=== PATIENT | female | born 1945 | race Hispanic/Latino ===

== ENCOUNTER 2016-11-11 10:50 | Emergency (ER) | payer MEDICARE ==
--- NOTE | 2016-11-11 11:57 | Emergency Department Report ---
ED Fall HPI - General Chief Complaint: Head Injury Stated Complaint: FALL Time Seen by Provider: 11/11/16 11:45 Source: patient, EMS Mode of arrival: Stretcher Limitations: No Limitations - History of Present Illness Initial Comments: 71 years old female history of frequent full advanced dementia brought in by EMS for evaluation of fall that happened last night with a laceration to the scalp. Complaint: fall -: Sudden, Last night Fall From: standing Fall Witnessed: yes, by living facility s Place Fall Occurred: senior care/SNF Loss of Consciousness: none Prolonged Down Time?: no Symptoms Prior to Fall: none Location: head - Related Data Allergies Allergy/AdvReac Type Severity Reaction Status Date / Time No Known Allergies Allergy Unverified 11/11/16 11:11 ED Review of Systems ROS: Stated complaint: FALL Other details as noted in HPI Comment: All other systems reviewed and negative Constitutional: denies: chills, fever Eyes: denies: eye pain, eye discharge, vision change Cardiovascular: denies: chest pain Musculoskeletal: denies: back pain Neurological: denies: headache, weakness ED Past Medical Hx - Past Medical History Previous Medical History?: Yes Additional medical history: Hypokalemia, Hypothyroidism, Acute Cystitis - Surgical History Past Surgical History?: No - Social History Smoking Status: Unknown if ever smoked ED Physical Exam - General Limitations: No Limitations General appearance: alert, in no apparent distress - Head Head exam: Present: other (centimeter laceration to the posterior scalp) - Eye Eye exam: Present: normal appearance Pupils: Present: normal accommodation - ENT ENT exam: Present: normal exam, normal orophraynx, mucous membranes moist, TM's normal bilaterally, normal external ear exam - Neck Neck exam: Present: normal inspection, full ROM. Absent: tenderness, meningismus, lymphadenopathy - Respiratory Respiratory exam: Present: normal lung sounds bilaterally. Absent: respiratory distress, wheezes, rales, rhonchi, stridor, accessory muscle use, decreased breath sounds - Cardiovascular Cardiovascular Exam: Present: regular rate, normal rhythm, normal heart sounds - GI/Abdominal GI/Abdominal exam: Present: soft. Absent: distended, tenderness, guarding, rebound, rigid, mass, bruit, pulsatile mass - Extremities Exam Extremities exam: Present: normal inspection, full ROM, normal capillary refill. Absent: tenderness - Back Exam Back exam: Present: normal inspection, full ROM. Absent: tenderness, CVA tenderness (R), CVA tenderness (L), muscle spasm, paraspinal tenderness, vertebral tenderness - Neurological Exam Neurological exam: Present: alert, CN II-XII intact, other (oriented in place time but not person) - Skin Skin exam: Present: warm, normal color ED Course Vital Signs 11/11/16 11/11/16 11/11/16 11:02 11:11 11:30 Temperature 97.9 F Pulse Rate 59 L Respiratory 18 Rate Blood Pressure 132/62 140/66 O2 Sat by Pulse 99 97 100 Oximetry 11/11/16 11/11/16 11/11/16 12:00 12:56 13:00 Temperature Pulse Rate Respiratory Rate Blood Pressure 140/66 140/66 139/69 O2 Sat by Pulse 91 87 99 Oximetry 11/11/16 15:58 Temperature Pulse Rate 61 Respiratory 18 Rate Blood Pressure O2 Sat by Pulse 98 Oximetry - Reevaluation(s) Reevaluation #1: 11/11/16 14:20 Patient remained stable in the ER with no complaint. CT head and neck came back negative will discharge patient back to her senior care 11/11/16 19:30 - Laceration /Wound Repair Head Wound Location: head Wound Length (cm): 2 Wound Explored: clean Betadine Prep?: Yes Wound Debrided: minimal Number of Sutures: 2 Layer Closure?: No Sterile Dressing Applied?: Yes Progress: Two [place] inserted with no complication ED Medical Decision Making - Radiology Data Radiology results: report reviewed Critical care attestation.: If time is entered above; I have spent that time in minutes in the direct care of this critically ill patient, excluding procedure time. ED Disposition Clinical Impression: Head injury, Neck injury, Laceration of scalp Disposition: DC-01 TO HOME OR SELFCARE Is pt being admited?: No Condition: Stable Instructions: Laceration (ED), Minor Head Injury (ED), Fall Prevention (ED) Referrals: PRIMARY CARE,MD [Primary Care Provider] - 3-5 Days
[2016-11-11 13:02] VITALS: BP 139/69
--- NOTE | 2016-11-11 13:55 | Cat Scan Report ---
CT scan of head without IV contrast: No previous studies available for comparison. History: Injury. Findings: Dilated ventricles with periventricular area of low attenuation. Midline ventricles. Ill-defined area of low attenuation right frontal lobe and right temporal lobe suggestive of chronic ischemia/encephalomalacia. No evidence of acute hemorrhage. No extra-axial fluid collection. Normal brainstem and cerebellum. Normal sinuses and mastoid air cells. Impression: No acute intracranial abnormality.
--- NOTE | 2016-11-11 13:56 | Cat Scan Report ---
CT scan of cervical spine: History: Neck injury. Findings: The odontoid process and lateral mass appears intact. Anterior and posterior arch of atlas appears normal. Normal occipital condyles. The normal height of vertebral bodies. Decrease in height of intervertebral disc spaces. Sclerotic adjacent articular surfaces with peripheral osteophytes suggestive of severe cervical spondylosis. Normal prevertebral soft tissue. Impression: Severe cervical spondylosis. No evidence of acute fracture.
[2016-11-11] MEDS ORDERED: HYDROGEN PEROXIDE TP ONE (14:08)
[2016-11-11] MEDS ORDERED: HYDROGEN PEROXIDE ONE (14:09)
[2016-11-11] MEDS ORDERED: ATIVAN IM ONE (15:04)
== END 2016-11-11 16:41 | disposition home or self-care (01) ==
LOC: ED 10:50
DX: S01.01XA Laceration without foreign body of scalp, initial encounter (principal); S09.90XA Unspecified injury of head, initial encounter; S19.9XXA Unspecified injury of neck, initial encounter; E87.6 Hypokalemia; E03.9 Hypothyroidism, unspecified; W19.XXXA Unspecified fall, initial encounter; Y93.9 Activity, unspecified; Y99.9 Unspecified external cause status; Y92.89 Other specified places as the place of occurrence of the external cause
CPT/HCPCS: 12001; 70450; 72125; 96372; 99284; J2060

== ENCOUNTER 2016-11-11 19:51 | Emergency (ER) | payer MEDICARE ==
[2016-11-11 20:54] LABS: Basophils % (Auto) 0.6 % (0.0-1.8); Eosinophils % (Auto) 0.5 % (0.0-4.3); Hematocrit 50.5 % (30.3-42.9); Hemoglobin 16.6 gm/dl (10.1-14.3); Mean Corpuscular HGB Conc 33 % (30-34); Mean Corpuscular Hemoglobin 30 pg (28-32); Mean Corpuscular Volume 92 fl (79-97); Platelet Count 335 K/mm3 (140-440); Red Blood Count 5.49 M/mm3 (3.65-5.03); Red Cell Distribution Width 15.3 % (13.2-15.2); White Blood Count 11.6 K/mm3 (4.5-11.0)
[2016-11-11 21:11] LABS: Anion Gap 21 mmol/L; Blood Urea Nitrogen 12 mg/dL (7-17); Calcium 9.9 mg/dL (8.4-10.2); Carbon Dioxide 24 mmol/L (22-30); Chloride 94.2 mmol/L (98-107); Glucose 122 mg/dL (65-100); Potassium 4.1 mmol/L (3.6-5.0); Sodium 135 mmol/L (137-145)
--- NOTE | 2016-11-11 22:50 | Emergency Department Report ---
ED General Adult HPI - General Chief complaint: Altered Mental Status Stated complaint: MH Time Seen by Provider: 11/11/16 22:41 Source: family, RN notes reviewed, old records reviewed Mode of arrival: Wheelchair Limitations: Other (patient is demented. Patient is a poor historian.) - History of Present Illness Initial comments: This is a 71-year-old female, the patient is previously unknown to this provider. Patient was recently seen in the emergency department yesterday for baseline confusion, mechanical fall and occipital scalp laceration, had a negative CT scan of the brain and cervical spine, while in the ER, was given 1 mg of Ativan for agitation. Patient was brought to the ER by her friend for confusion. The patient has no recollection of this. The patient denies headache, neck pain, chest pain, abdominal pain, shortness of breath. Patient recently discharged from [facility]. Has a past medical history of hypothyroidism. Patient has no complaints at this time, unable to describe exacerbating or relieving factors. As per recent triage nurse documentation, patient typically alert and oriented 1 at baseline. -: Gradual Consistency: constant Improves with: none Associated Symptoms: denies other symptoms, confusion (confusion, however patient has no complaints.) - Related Data Previous Rx's Medication Instructions Recorded Last Taken Type Levothyroxine [Synthroid] 25 mcg PO QAM #20 tablet 11/12/16 Unknown Rx Allergies Allergy/AdvReac Type Severity Reaction Status Date / Time No Known Allergies Allergy Unverified 11/11/16 11:11 ED Review of Systems ROS: Stated complaint: MH Other details as noted in HPI Comment: Unobtainable due to pts medical conditions Respiratory: denies: cough, shortness of breath Cardiovascular: denies: chest pain Gastrointestinal: denies: abdominal pain Genitourinary: denies: dysuria Neurological: confusion. denies: weakness ED Past Medical Hx - Past Medical History Previous Medical History?: Yes Hx Psychiatric Treatment: Yes ([facility]) Additional medical history: Hypokalemia, Hypothyroidism, Acute Cystitis - Surgical History Past Surgical History?: Yes Additional Surgical History: THYROIDECTOMY - Social History Smoking Status: Former Smoker Substance Use Type: None - Medications Home Medications: Home Medications Medication Instructions Recorded Confirmed Last Taken Type Levothyroxine [Synthroid] 25 mcg PO QAM #20 tablet 11/12/16 Unknown Rx ED Physical Exam - General Limitations: Other (patient demented, patient poor historian) General appearance: alert, in no apparent distress - Head Head exam: Present: atraumatic, normocephalic - Eye Eye exam: Present: normal appearance, EOMI, other (bilateral arcus senilis). Absent: nystagmus - ENT ENT exam: Present: normal exam, normal orophraynx, mucous membranes moist, normal external ear exam - Neck Neck exam: Present: normal inspection, full ROM. Absent: tenderness, meningismus - Respiratory Respiratory exam: Present: normal lung sounds bilaterally. Absent: respiratory distress, wheezes, rales, rhonchi, stridor - Cardiovascular Cardiovascular Exam: Present: regular rate, normal rhythm, normal heart sounds. Absent: bradycardia, tachycardia, irregular rhythm, systolic murmur, diastolic murmur, rubs, gallop - GI/Abdominal GI/Abdominal exam: Present: soft, normal bowel sounds. Absent: distended, tenderness, guarding, rebound, rigid, pulsatile mass - Extremities Exam Extremities exam: Present: normal inspection, full ROM, normal capillary refill. Absent: pedal edema, joint swelling, calf tenderness - Back Exam Back exam: Present: normal inspection, full ROM. Absent: tenderness, CVA tenderness (R), CVA tenderness (L), muscle spasm, paraspinal tenderness, vertebral tenderness - Neurological Exam Neurological exam: Present: alert (patient alert to name, year, does not know where she is.), other (Extraocular movements intact. Tongue midline. No facial droop. Facial sensation intact to light touch in the V1, V2, V3 distribution bilaterally. 5 and 5 strength in 4 extremities.. Sensation is intact to light touch in 4 extremities.). Absent: motor sensory deficit - Psychiatric Psychiatric exam: Present: normal affect, normal mood - Skin Skin exam: Present: warm, dry, intact, normal color. Absent: rash ED Course Vital Signs 11/11/16 11/11/16 11/12/16 20:26 22:36 00:00 Temperature 98.3 F Pulse Rate 90 74 71 Respiratory 20 18 18 Rate Blood Pressure 106/82 Blood Pressure 128/64 120/61 [Left] O2 Sat by Pulse 97 100 100 Oximetry 11/12/16 11/12/16 11/12/16 02:00 04:00 06:19 Temperature Pulse Rate 70 75 74 Respiratory 15 16 18 Rate Blood Pressure Blood Pressure 113/59 122/61 125/50 [Left] O2 Sat by Pulse 100 100 100 Oximetry 11/12/16 11/12/16 11/12/16 07:16 10:02 13:14 Temperature 98.5 F Pulse Rate 77 76 67 Respiratory 14 16 14 Rate Blood Pressure Blood Pressure 111/51 116/54 100/53 [Left] O2 Sat by Pulse 100 100 98 Oximetry 11/12/16 11/12/16 11/12/16 15:54 18:53 21:00 Temperature 97.7 F 98.2 F 98 F Pulse Rate 77 71 80 Respiratory 14 16 18 Rate Blood Pressure Blood Pressure 140/72 105/86 129/70 [Left] O2 Sat by Pulse 98 96 96 Oximetry ED Medical Decision Making - Lab Data Result diagrams: 11/11/16 20:42 11/11/16 20:42 Vital Signs (72 hours) 11/11/16 20:26 Temperature 98.3 F Pulse Rate 90 Respiratory 20 Rate Blood Pressure 106/82 O2 Sat by Pulse 97 Oximetry Lab Results 11/11/16 11/11/16 11/12/16 Range/Units 20:42 20:42 23:55 WBC 11.6 H (4.5-11.0) K/mm3 RBC 5.49 H (3.65-5.03) M/mm3 Hgb 16.6 H (10.1-14.3) gm/dl Hct 50.5 H (30.3-42.9) % MCV 92 (79-97) fl MCH 30 (28-32) pg MCHC 33 (30-34) % RDW 15.3 H (13.2-15.2) % Plt Count 335 (140-440) K/mm3 Lymph % (Auto) 21.5 (13.4-35.0) % [place] % (Auto) 4.6 (0.0-7.3) % Eos % (Auto) 0.5 (0.0-4.3) % Baso % (Auto) 0.6 (0.0-1.8) % Lymph # 2.5 (1.2-5.4) K/mm3 [place] # 0.5 (0.0-0.8) K/mm3 Eos # 0.1 (0.0-0.4) K/mm3 Baso # 0.1 (0.0-0.1) K/mm3 Seg Neutrophils % 72.8 H (40.0-70.0) % Seg Neutrophils # 8.4 H (1.8-7.7) K/mm3 Sodium 135 L (137-145) mmol/L Potassium 4.1 (3.6-5.0) mmol/L Chloride 94.2 L (98-107) mmol/L Carbon Dioxide 24 (22-30) mmol/L Anion Gap 21 mmol/L BUN 12 (7-17) mg/dL Creatinine 0.6 L (0.7-1.2) mg/dL Estimated GFR > 60 ml/min BUN/Creatinine Ratio 20.00 % Glucose 122 H (65-100) mg/dL Calcium 9.9 (8.4-10.2) mg/dL Urine Bilirubin Neg (Negative) Urine RBC (Auto) 2.0 (0.0-6.0) /HPF - EKG Data -: EKG Interpreted by Ar EKG shows normal: sinus rhythm - EKG Data When compared to previous EKG there are: previous EKG unavailable 11/12/16 02:14 Low voltage, normal sinus, 75 bpm, normal axis, QTC 468 ms, abnormal EKG, not morphologically consistent with STEMI. There is no prior for comparison. - Radiology Data Radiology results: report reviewed, image reviewed CT scan of the brain and cervical spine from preceding visit reviewed, no acute findings - Medical Decision Making Differential diagnosis: Chronic dementia, medication side effects, urinary tract infection, hypothyroidism, active social work job titles Assessment and plan: 71-year-old female, history of dementia, recently discharged from psychiatric facility, accompanied by her friend Tejal; . Primary complaint of altered mental status, recently admitted for major depressive disorder with a single episode, noted to be severe. The patient is afebrile with reassuring vital signs, has no complaints, and appears to have a physical exam that is consistent with chronic dementia. TSH is pending, urinalysis is pending, however there does not appear to be any emergent medical issue at this time which would require hospitalization. Unfortunately, the patient's friend Tejal indicates that the patient lives alone , and cannot take care of herself. Therefore, the patient will require consult with case management for placement. However, at this point in time, there is no objective indication to admit the patient to the hospital. Critical care attestation.: If time is entered above; I have spent that time in minutes in the direct care of this critically ill patient, excluding procedure time. ED Disposition Clinical Impression: Dementia Qualifiers: Dementia type: unspecified type Dementia behavioral disturbance: without behavioral disturbance Qualified Code(s): F03.90 - Unspecified dementia without behavioral disturbance Hypothyroidism Qualifiers: Hypothyroidism type: unspecified Qualified Code(s): E03.9 - Hypothyroidism, unspecified Fall Qualifiers: Encounter type: initial encounter Qualified Code(s): W19.XXXA - Unspecified fall, initial encounter Occipital scalp laceration Qualifiers: Encounter type: initial encounter Qualified Code(s): S01.01XA - Laceration without foreign body of scalp, initial encounter Disposition: - TO HOME OR SELFCARE Is pt being admited?: No Does the pt Need Aspirin: No Condition: Stable Instructions: Dementia (ED), Fall Prevention for Older Adults (ED) Prescriptions: Levothyroxine [Synthroid] 25 mcg PO QAM #20 tablet Referrals: PRIMARY CARE, [Primary Care Provider] - 3-5 Days
[2016-11-12 00:33] LABS: Bilirubin,Urine NEG (Negative); Blood,Urine NEG (Negative); Ketones,Urine TR mg/dL (Negative); Leukocyte Esterase,Urine NEG (Negative); Mucus,Urine FEW /HPF; Nitrite,Urine NEG (Negative); Protein,Urine <15 mg/dL mg/dL (Negative); WBC,Urine < 1.0 /HPF (0.0-6.0)
[2016-11-12] MEDS ORDERED: ATIVAN IM PRN (00:42)
[2016-11-12] MEDS ORDERED: ZOFRAN ODT PO PRN (00:42)
[2016-11-12] MEDS ORDERED: TYLENOL PO PRN (00:42)
[2016-11-12] MEDS ORDERED: SYNTHROID PO SCH ×2 (06:00)
[2016-11-12] MEDS ORDERED: TYLENOL PO ONE (17:03)
--- NOTE | 2016-11-12 18:33 | Cat Scan Report ---
FINAL REPORT PROCEDURE: CT HEAD/BRAIN WO CON TECHNIQUE: Computerized tomography of the head was performed without contrast material. HISTORY: headache COMPARISON: 11/11/16 FINDINGS: Skull and scalp: Normal. Paranasal sinuses: Normal. Ventricles and subarachnoid spaces: Normal. Cerebrum: No evidence of hemorrhage, acute infarction or mass . Cerebellum and brainstem: No evidence of hemorrhage, acute infarction or mass. Vasculature: Moderately heavy calcified intracranial atherosclerosis including right vertebral artery peripherally and basilar artery centrally Comments: Diffuse cerebral atrophy with encephalomalacia in the frontal lobes right greater than left. Scattered lacunar infarct disease, chronic IMPRESSION: No acute intracranial pathology seen at this time
--- NOTE | 2016-11-12 19:42 | XRay Report ---
FINAL REPORT PROCEDURE: XR CHEST ROUTINE 2V TECHNIQUE: Two view PA lateral chest HISTORY: Pain after fall/AMS COMPARISON: No prior studies are available for comparison. FINDINGS: Pulmonary emphysema with peripheral and lung base honeycomb fibrosis. Central bronchiectasis peribronchial cuffing. Scattered interstitial markings the lung zones. Possible small nodular changes in the mid lower lung zones peripherally IMPRESSION: No acute cardiopulmonary process seen at this time
[2016-11-12 21:01] VITALS: BP 129/70
== END 2016-11-12 21:00 | disposition home or self-care (01) ==
LOC: ED 19:51
DX: F03.90 Unspecified dementia, unspecified severity, without behavioral disturbance, psychotic disturbance, mood disturbance, and anxiety (principal); E03.9 Hypothyroidism, unspecified; E87.6 Hypokalemia; S01.01XD Laceration without foreign body of scalp, subsequent encounter; Z87.891 Personal history of nicotine dependence; F32.9 Major depressive disorder, single episode, unspecified; X58.XXXD Exposure to other specified factors, subsequent encounter
CPT/HCPCS: 36415; 70450; 71020; 80048; 81001; 82962; 84439; 84443; 85025; 87086; 93005; 93010; 99284; J2060

== ENCOUNTER 2016-11-16 19:28 | Emergency (ER) | payer MEDICARE ==
--- NOTE | 2016-11-17 07:51 | Emergency Department Report ---
HPI - General Chief Complaint: Medical Clearance Time Seen by Provider: 11/17/16 07:36 - HPI HPI: This is a 71-year-old female presents to the emergency department from her personal detention with the complaint from the openstack cloud consulting architect that the patient has been refusing to eat or drink, take her medications. The openstack cloud consulting architect also previously stated that she refuses to cooperate with care. In triage the patient was responding to questions and said that everything the openstack cloud consulting architect was saying was a lie and that she is eating, drinking and being compliant. The patient has a history of dementia, questionable history of some previous cancer , hypothyroidism and questionable psychiatric conditions for which she has been to [facility] in the past. The patient herself is currently a AAO 3 and has no complaints. The openstack cloud consulting architect is not currently bedside. ED Past Medical Hx - Past Medical History Previous Medical History?: Yes Hx of Cancer: Yes (Stomach?) Hx Psychiatric Treatment: Yes ([facility]) Hx Dementia: Yes Additional medical history: Hypokalemia, Hypothyroidism, Acute Cystitis - Surgical History Additional Surgical History: THYROIDECTOMY - Social History Smoking Status: Current Some Day Smoker - Medications Home Medications: Home Medications Medication Instructions Recorded Confirmed Last Taken Type Levothyroxine [Synthroid] 25 mcg PO QAM #20 tablet 11/12/16 Unknown Rx ED Review of Systems ROS: Stated complaint: REFUSES TO EAT OR DRINK Other details as noted in HPI Comment: All other systems reviewed and negative Constitutional: denies: chills, fever Eyes: as per HPI ENT: denies: ear pain, throat pain Respiratory: denies: cough, shortness of breath, wheezing Cardiovascular: denies: chest pain, palpitations Gastrointestinal: denies: abdominal pain, nausea, diarrhea Genitourinary: denies: urgency, dysuria, discharge Musculoskeletal: denies: back pain, joint swelling, arthralgia Skin: denies: rash, lesions Neurological: as per HPI Physical Exam - Physical Exam Vital Signs: Vital Signs 11/17/16 11/17/16 06:15 06:42 Temperature 97.5 F L 97.6 F Pulse Rate 71 66 Respiratory 20 16 Rate Blood Pressure 127/64 Blood Pressure 98/62 [Right] O2 Sat by Pulse 97 98 Oximetry Physical Exam: GENERAL: The patient is well-developed well-nourished. HENT: Normocephalic. Atraumatic. Patient has moist mucous membranes. EYES: Extraocular motions are intact. Pupils equal reactive to light bilaterally. NECK: Supple. Trachea is midline. CHEST/LUNGS: Clear to auscultation. There is no respiratory distress noted. HEART/CARDIOVASCULAR: Regular. There is no tachycardia. There is no gallop rub or murmur. ABDOMEN: Abdomen is soft, nontender. Patient has normal bowel sounds. There is no abdominal distention. SKIN: Skin is warm and dry. NEURO: The patient is awake, alert, and oriented but occasionally she does show some confusion. The patient is cooperative. The patient has no focal neurologic deficits. The patient has normal speech and gait. Cranial nerves II through XII grossly intact. MUSCULOSKELETAL: There is no tenderness or deformity. There is no limitation range of motion. There is no evidence of acute injury. ED Course Vital Signs 11/17/16 11/17/16 06:15 06:42 Temperature 97.5 F L 97.6 F Pulse Rate 71 66 Respiratory 20 16 Rate Blood Pressure 127/64 Blood Pressure 98/62 [Right] O2 Sat by Pulse 97 98 Oximetry - Consultations Consultation #1: I spoke with the patient's DURABLE POWER OF PRODUCT ENGINEERING MANAGER, Tejal Sotelo. There was also some type of company who assists and/or helps monitor elderly patients, who was on the phone as well, [employer]ek[employer] Michael. Tejal Hayden's phone numbers are and . ED Medical Decision Making - Lab Data Result diagrams: 11/17/16 08:38 11/17/16 08:38 - Medical Decision Making This is a 71-year-old who presents from a personal detention after they say she is not been eating or drinking. I spoke with the DURABLE POWER OF PRODUCT ENGINEERING MANAGER who says that the patient has a living will but says that aggressive measures should not be taken. They also say they are hoping she will be going to a psychiatric facility but also have been open to hospice care. Since this patient has been in the emergency department she is mostly calm and appropriate. Occasionally she'll show some signs of confusion but she does have dementia. She certainly does not appear to be showing any signs of acute psychosis. She has not displayed any responding to internal stimuli. She denies any suicidal ideations. She does not appear to be a candidate to be made a 1013 and sent to an inpatient psychiatric facility. However I made sure that she received a consult by the behavioral health team who did their full assessment and agrees that the patient does not appear to be a 1013 candidate. I spoke with case management who attempted to see if the patient might fit criteria for inpatient hospice. However after their assessment was done the patient also does not appear to be a candidate for inpatient hospice. The DURABLE POWER OF PRODUCT ENGINEERING MANAGER and this company that they appear to be using 2 assist with this patient's care, appears to think that they are able to facilitate admission and/or transfer to reach you psychiatric facility without the patient being a 1013 or without this being done by Critical access hospital. I do not believe the patient requires inpatient psychiatric facility, they are free to do this disposition as the power of managing attorney. However at this very moment, the patient does not appear to have a safe disposition as she is not allowed back at the personal detention and does not live with the power of managing attorney. For now she will remain in the emergency department, we will continue to monitor her, while case management continues to work on placement. In reviewing the chart, it appears as if placement was found at a personal detention and the patient was transported there safely. Critical Care Time: No Critical care attestation.: If time is entered above; I have spent that time in minutes in the direct care of this critically ill patient, excluding procedure time. ED Disposition Clinical Impression: Dementia Qualifiers: Dementia type: unspecified type Dementia behavioral disturbance: without behavioral disturbance Qualified Code(s): F03.90 - Unspecified dementia without behavioral disturbance Disposition: DC/TX-70 ANOTHER TYPE HLTHCARE Is pt being admited?: No Condition: Stable Referrals: PRIMARY CARE, [Primary Care Provider] - 3-5 Days
[2016-11-17 08:51] LABS: Hematocrit 51.9 % (30.3-42.9); Hemoglobin 17.3 gm/dl (10.1-14.3); Mean Corpuscular HGB Conc 33 % (30-34); Mean Corpuscular Hemoglobin 31 pg (28-32); Mean Corpuscular Volume 92 fl (79-97); Platelet Count 362 K/mm3 (140-440); Red Blood Count 5.65 M/mm3 (3.65-5.03); White Blood Count 7.5 K/mm3 (4.5-11.0)
[2016-11-17] MEDS ORDERED: NACL 0.9% 500 ML 500 ML IV ONE (08:57)
[2016-11-17] MEDS ORDERED: NACL 0.9% 500 ML 500 ML ONE (09:01)
[2016-11-17 09:11] LABS: Basophils % (Auto) 1.2 % (0.0-1.8); Eosinophils % (Auto) 0.8 % (0.0-4.3)
[2016-11-17 09:16] LABS: Anion Gap 19 mmol/L; BUN/Creatinine Ratio 16.66; Blood Urea Nitrogen 10 mg/dL (7-17); Calcium 9.6 mg/dL (8.4-10.2); Carbon Dioxide 24 mmol/L (22-30); Chloride 98.5 mmol/L (98-107); Glucose 98 mg/dL (65-100); Potassium 3.9 mmol/L (3.6-5.0); Sodium 138 mmol/L (137-145)
[2016-11-17 10:47] LABS: Urine Drugs of Abuse Note Disclamer
[2016-11-17 10:57] LABS: Bilirubin,Urine NEG (Negative); Blood,Urine NEG (Negative); Ketones,Urine NEG (Negative); Leukocyte Esterase,Urine NEG (Negative); Mucus,Urine FEW /HPF; Nitrite,Urine NEG (Negative); RBC,Urine < 1.0 /HPF (0.0-6.0)
[2016-11-17] MEDS ORDERED: ATIVAN ONE (14:31)
[2016-11-17] MEDS ORDERED: ATIVAN IV ONE (14:31)
[2016-11-18 12:48] VITALS: BP 134/67
== END 2016-11-18 12:47 | disposition other institution (70) ==
LOC: ED 19:28
DX: F03.90 Unspecified dementia, unspecified severity, without behavioral disturbance, psychotic disturbance, mood disturbance, and anxiety (principal); E03.9 Hypothyroidism, unspecified; F17.210 Nicotine dependence, cigarettes, uncomplicated
CPT/HCPCS: 36415; 80048; 80307; 81001; 84443; 85025; 96374; 99285; G0480; J2060; J7040; 80320; 99283